=== PATIENT | female | born 1940 | race Caucasian/White ===

== ENCOUNTER 2019-01-19 07:21 | Emergency (ER) | payer MEDICARE ==
[2019-01-19] MEDS ORDERED: Ondansetron PF 4 MG/2 ML Vial ONE (07:49)
[2019-01-19] MEDS ORDERED: Morphine 2 MG/ML SYRINGE ONE (07:49)
[2019-01-19] MEDS ORDERED: Morphine 4 MG/ML VIAL ONE (07:50)
[2019-01-19 08:29] LABS: ALT (SGPT) 35 U/L (8-55); AST (SGOT) 29 U/L (5-34); Albumin 3.9 g/dL (3.4-4.8); Alkaline Phosphatase 57 U/L (40-150); Anion Gap 16 mmol/L (10-20); BUN (Urea Nitrogen) 21 mg/dL (9.8-20.1); Bilirubin, Total 0.3 mg/dL (0.2-1.2); Calc. Creatinine Clearance 0 mL/min (70-130); Calcium 9.4 mg/dL (7.8-10.44); Carbon Dioxide 26 mmol/L (23-31); Chloride 101 mmol/L (98-107); Estimated GFR-MDRD 53; Globulin 2.1 g/dL (2.4-3.5); Glucose 223 mg/dL (83-110); Potassium 4.5 mmol/L (3.5-5.1); Sodium 138 mmol/L (136-145)
[2019-01-19 08:37] LABS: Band 3 % (5-11); Eosinophils 2 % (0-10); Hemoglobin 13.2 g/dL (12.0-16.0); Lymphocytes 52 % (21-51); MDiff Complete? YES; Mean Corpuscular HGB CONC 33.6 g/dL (32.0-36.0); Mean Corpuscular Hemoglobin 32.2 pg (27.0-31.0); Mean Corpuscular Volume 95.9 fL (78.0-98.0); Mean Platelet Volume 7.9 fL (7.4-10.4); Monocytes 2 % (0-10); Neutrophil 40 % (42-75); Platelet Count 181 thou/uL (130-400); Platelet Morphology Comment Appears Adequate; RBC Distribution Width 12.4 % (11.5-14.5); Reactive Lymphocytes 1 % (0-10); Red Blood Cell (RBC) Count 4.09 mill/uL (4.20-5.40); White Blood Cell (WBC) Count 10.1 thou/uL (4.8-10.8)
[2019-01-19 08:56] LABS: Bilirubin Negative (Negative); Blood, Urine Negative (Negative); Clarity Clear (Clear); Glucose, Urine (Dipstick) 300 mg/dL (Negative); Leukocyte Negative Leu/uL (Negative); Nitrite Negative (Negative); Protein, Urine (Dipstick) Negative (Neg-Trace); Urobilinogen Normal mg/dL (Less than 2)
--- NOTE | 2019-01-19 09:09 | CT ---
EXAM: Abdomen and pelvic CT scan with contrast: HISTORY: Back pain left lateral rib cage pain no recent trauma COMPARISON: None FINDINGS: 3 vessel coronary artery calcific disease. Multiple small pulmonary nodules are noted bilaterally the largest which measures approximately 0.7 c m in the left lower lobe. Renal risk factors, recommend follow-up complete chest CT scan in 3-6 months. Liver: Fatty change Gallbladder:Status post cholecystectomy with some dilatation of the common bile duct but no intrahepa tic ductal dilatation. Pancreas:Occasional small pancreatic calcifications. 2.2 x 2.7 cm circumscribed cyst or cystic mass i n the head of the pancreas. Consider follow-up endoscopic ultrasound for further assessment are nonemergent basis. Spleen:Unremarkable. Adrenal glands:Unremarkable. Kidneys:No renal calculus or acute obstruction.No solid or cystic mass. No evidence for bowel obstruction. No CT evidence for acute appendicitis. The urinary bladder is unremarkable. No abscess, adenopathy, or abnormal fluid collection within the abdomen or pelvis. Lumbar spondylosis with extensive disc osteophytosis and multilevel variable severity stenosis. IMPRESSION: Bilateral pulmonary nodules up to 0.7 cm in the left lower lobe. Fatty changes in the liver. Circumscribed low-attenuation cyst/cystic mass in the head of the pancreas. Other findings as above. Code lung nodule
[2019-01-19 09:50] LABS: Troponin I Less than 0.010 ng/mL (< 0.028)
[2019-01-19] MEDS ORDERED: ISOVUE-370 76%-LOCM 1 ML ONE (13:02)
== END 2019-01-19 10:07 | disposition home or self-care (01) ==
LOC: ERS 07:21
DX: R07.81 Pleurodynia (principal); E11.9 Type 2 diabetes mellitus without complications; Z79.82 Long term (current) use of aspirin; Z79.4 Long term (current) use of insulin
CPT/HCPCS: 74177; 80053; 81003; 84484; 85025; 87086; 93005; 96374; 96375; J2270; J2405; Q9966

== ENCOUNTER 2019-02-27 13:16 | Outpatient (CLI) | payer MEDICARE ==
--- NOTE | 2019-02-27 16:03 | RAD ---
TWO VIEWS CHEST: DATE: 02/27/2019. PROVIDED CLINICAL HISTORY: Dyspnea. FINDINGS: Cardiac and mediastinal silhouette are within normal limits. No focal consolidation, pleural fluid, or pneumothorax apparent. IMPRESSION: No evidence for an acute cardiopulmonary process. POS: TPC
== END 2019-02-27 13:17 | disposition home or self-care (01) ==
LOC: RAD 13:16
PROVIDERS: ATTEND Internal Medicine Pulmonary Disease
DX: R06.00 Dyspnea, unspecified (principal)
CPT/HCPCS: 71046

== ENCOUNTER 2019-07-03 15:44 | Observation (INO) | payer MEDICARE ==
[2019-07-03 16:19] LABS: #Basophils 0.2 thou/uL (0.0-0.2); #Lymphocytes 5.6 thou/uL (1.20-3.40); #Monocytes 0.4 thou/uL (0.11-0.59); #Neutrophils 7.8 thou/uL (1.40-6.50); %Basophils 1.5 % (0.0-1.0); %Eosinophils 0.2 % (0.0-10.0); %Lymphocytes 39.8 % (21.0-51.0); %Monocytes 2.9 % (0.0-10.0); %Neutrophils 55.7 % (42.0-75.0); Hemoglobin 14.2 g/dL (12.0-16.0); Mean Corpuscular Hemoglobin 32.5 pg (27.0-31.0); Mean Corpuscular Volume 95.8 fL (78.0-98.0); Mean Platelet Volume 7.3 fL (7.4-10.4); Platelet Count 205 thou/uL (130-400); Red Blood Cell (RBC) Count 4.37 mill/uL (4.20-5.40)
[2019-07-03 16:28] LABS: INR-International Normal Ratio 0.9; PTT 23.3 SEC (22.9-36.1); Prothrombin Time 12.6 SEC (12.0-14.7)
[2019-07-03 16:34] LABS: ALT (SGPT) 21 U/L (8-55); AST (SGOT) 17 U/L (5-34); Albumin 3.9 g/dL (3.4-4.8); Alkaline Phosphatase 54 U/L (40-110); Anion Gap 14 mmol/L (10-20); BUN (Urea Nitrogen) 19 mg/dL (9.8-20.1); Bilirubin, Total 0.5 mg/dL (0.2-1.2); CK (CPK) 147 U/L (29-168); Calc. Creatinine Clearance 0 mL/min (70-130); Calcium 9.3 mg/dL (7.8-10.44); Carbon Dioxide 26 mmol/L (23-31); Chloride 99 mmol/L (98-107); Estimated GFR-MDRD 53; Globulin 2.3 g/dL (2.4-3.5); Glucose 274 mg/dL (83-110); Potassium 4.4 mmol/L (3.5-5.1); Protein, Total 6.2 g/dL (6.0-8.3); Sodium 135 mmol/L (136-145)
--- NOTE | 2019-07-03 16:50 | CT ---
Head CT without contrast 07/03/2019: Comparison: None HISTORY: Left-sided facial droop with altered mental status TECHNIQUE: Axial CT imaging at 5 mm intervals from vertex through skull base without contrast FINDINGS: A right-sided cochlear implant is present. Associated streak artifact limits detailed asses sment of the lateral aspect of the right frontal lobe. The imaged paranasal sinuses and mastoid air cells are well-aerated. The patient is status post mastoidectomy on the right. No intracranial hemorrhage, midline shift, or mass effect. IMPRESSION: No intracranial hemorrhage. Dr. Sotelo made aware at 4:46 PM 07/03/2019
[2019-07-03 17:41] LABS: Bilirubin Negative (Negative); Blood, Urine Negative (Negative); Clarity Clear (Clear); Glucose, Urine (Dipstick) 150 mg/dL (Negative); Leukocyte Negative Leu/uL (Negative); Nitrite Negative (Negative); Protein, Urine (Dipstick) 20 mg/dL (Neg-Trace); Urobilinogen Normal mg/dL (Less than 2)
[2019-07-03] MEDS ORDERED: Nitroglycerin 2% Ointment 1 INCH/1 GM Packet ONE (18:14)
[2019-07-03] MEDS ORDERED: Aspirin Chewable 81 MG TAB ONE ×2 (18:14)
[2019-07-03 19:34] LABS: Troponin I Less than 0.010 ng/mL (< 0.028)
--- NOTE | 2019-07-03 20:28 | PDOC.FPRHP ---
- History of Present Illness Chief Complaint: AMS History of Present Illness: 78yo CF with h/o HLD, HTN, CAD, DMII presents with daughter for AMS. History mainly obtained from daughter at bedside. Pt is a [facility] assisted living resident. Last seen normal on 2 PM. At approx 1500 on 07/03 pt was found to be altered with word finding difficulty. No other focal neural deficits. ADLs at home independently and uses walker for ambulation. Sxs have improved since onset but not completely resolved. ED Course: CT head negative. ASA, nitropaste - Allergies/Adverse Reactions Allergies Allergy/AdvReac Type Severity Reaction Status Date / Time Penicillins Allergy Mild Rash Verified 07/04/19 04:06 - Home Medications Medication Instructions Recorded Confirmed Type Aspirin [Ecotrin Low Strength] 81 mg PO DAILY 07/03/19 07/03/19 History Atorvastatin Calcium [Lipitor] 40 mg PO DAILY 07/03/19 07/03/19 History Citalopram [CeleXA] 20 mg PO DAILY 07/03/19 07/03/19 History Fenofibrate 160 mg PO DAILY 07/03/19 07/03/19 History Furosemide [Lasix] 40 mg PO DAILY 07/03/19 07/03/19 History HumaLOG 60 unit SC TID-WM 07/03/19 07/03/19 History Insulin Glargine,Hum.Rec.Anlog 80 unit SQ HS 07/03/19 07/04/19 History [Toujeo Solostar] Lisinopril 10 mg PO DAILY 07/03/19 07/03/19 History Meloxicam [Mobic] 15 mg PO DAILY 07/03/19 07/03/19 History Oxybutynin Chloride [Oxybutynin 10 mg PO DAILY 07/03/19 07/03/19 History Chloride ER] - History PMHx: HLD, HTN, CAD, DMII PSHx: Apply, evelin, hyst, stens x2 about 8 years ago, cochlear implant, cataracts FHx: noncontributory Social: social wine, 1ppd for many years but quit about 2 years ago, no illicits - Review of Systems General: denies: fever/chills, weight/appetite/sleep changes, night sweats Eyes: denies: vision changes ENT: denies: nasal congestion, rhinorrhea Respiratory: denies: cough, congestion, shortness of breath Cardiovascular: reports: edema. denies: chest pain, palpitation Gastrointestinal: denies: nausea, vomiting, diarrhea, constipation, abdominal pain Genitourinary: denies: incontinence, dysuria Skin: denies: rashes Neurological: reports: other (word finding difficulty) - Vital signs BP: 180/75 HR: 91 RR: 18 Tmax: 99.2 Pox: 97% on RA Wt: 107kg - Physical Exam Constitutional: NAD, awake, alert and oriented, well developed, other (hard of hearing) HEENT: conjunctiva clear, MMM, oropharynx clear Neck: supple, trachea midline Heart: RRR, normal S1/S2, no murmurs/rubs/gallops, other (non pitting edema and venous stasis changes) Lungs: CTAB, no respiratory distress, good air movement, no rales/rhonchi, no wheezing Abdomen: soft, non-tender, bowel sounds present Musculoskeletal: other (5/5 strength throughout) Neurological: no focal deficit, CN II-XII intact, normal sensation, other (no cerebellar deficits. Difficulty with word finding in sentences more than a few words. No slurring of speech) Skin: no rash/lesions Psychiatric: normal mood and affect, good judgment and insight FMR H&P: Results - Labs Result Diagrams: 07/04/19 04:43 07/03/19 16:12 Lab results: WBC 14.0 thou/uL (4.8-10.8) H 07/03/19 16:12 Hgb 14.2 g/dL (12.0-16.0) 07/03/19 16:12 Hct 41.9 % (36.0-47.0) 07/03/19 16:12 MCV 95.8 fL (78.0-98.0) 07/03/19 16:12 Plt Count 205 thou/uL (130-400) 07/03/19 16:12 Neutrophils % 55.7 % (42.0-75.0) 07/03/19 16:12 Sodium 135 mmol/L (136-145) L 07/03/19 16:12 Potassium 4.4 mmol/L (3.5-5.1) 07/03/19 16:12 Chloride 99 mmol/L (98-107) 07/03/19 16:12 Carbon Dioxide 26 mmol/L (23-31) 07/03/19 16:12 BUN 19 mg/dL (9.8-20.1) 07/03/19 16:12 Creatinine 1.01 mg/dL (0.6-1.1) 07/03/19 16:12 Glucose 274 mg/dL (83-110) H 07/03/19 16:12 Calcium 9.3 mg/dL (7.8-10.44) 07/03/19 16:12 Total Bilirubin 0.5 mg/dL (0.2-1.2) 07/03/19 16:12 AST 17 U/L (5-34) 07/03/19 16:12 ALT 21 U/L (8-55) 07/03/19 16:12 Alkaline Phosphatase 54 U/L (40-110) 07/03/19 16:12 Creatine Kinase 147 U/L (29-168) 07/03/19 16:12 Serum Total Protein 6.2 g/dL (6.0-8.3) 07/03/19 16:12 Albumin 3.9 g/dL (3.4-4.8) 07/03/19 16:12 Urine Ketones Negative mg/dL (Negative) 07/03/19 17:23 Urine Blood Negative (Negative) 07/03/19 17:23 Urine Nitrite Negative (Negative) 07/03/19 17:23 Ur Leukocyte Esterase Negative Naomy/uL (Negative) 07/03/19 17:23 - Radiology Interpretation CT scan - head Status: report reviewed by me (no intracranial hemorrhage) FMR H&P: A/P - Problem List (1) Word finding difficulty Current Visit: Yes Status: Acute Code(s): R47.89 - OTHER SPEECH DISTURBANCES (2) HLD (hyperlipidemia) Current Visit: Yes Status: Chronic Code(s): E78.5 - HYPERLIPIDEMIA, UNSPECIFIED (3) HTN (hypertension) Current Visit: Yes Status: Chronic Code(s): I10 - ESSENTIAL (PRIMARY) HYPERTENSION (4) CAD (coronary artery disease) Current Visit: Yes Status: Chronic Code(s): I25.10 - ATHSCL HEART DISEASE OF [place] CORONARY ARTERY W/O ANG PCTRS (5) DMII (diabetes mellitus, type 2) Current Visit: Yes Status: Chronic - Plan 78yo CF with h/o HLD, HTN, CAD, DMII presents with daughter for word finding difficulty. #Word finding difficulty, CVA/MATA r/o - last seen normal 2/12 PM, found with word finding difficulty 07/03 @ about 3pm - no other focal deficits - upon further questioning, daughter stats progressive decline in mentation but acute worsening - CT head neg - Ordered CTA head/neck - Unable to obtain MRI 2/ cochlear inplants - Risk stratify, cont asa and statin - neuro checks - admit to stroke obs - PT/OT/speech - recent TSH normal at 1.9 in May 2019, clinic records #HLD - cont home meds - recent lipid panel in clinic in May 2019 with TC 131, HDL 45, LDL 58 #HTN - permissive htn, restart BP meds after 24-48hrs, removed nitro pasted placed by ED #IDDMII - Cont home insulin, aggressive SS, ACHS accuchecks, hyperglycemic protocol - A1C 9.7 in May 2019 - followed by endo #CAD - cont home meds, stent placement about 8 years ago PCP: KEVIN Zacarias Code: DNR IVF: SL Diet: HH Low Na VTE: Lovenox Disposition/LOS: Admit to stroke obs for CVA/TIA r/o. Imaging pending. Anticipate hospitalization <48hrs pending further workup. FMR H&P: Upper Level - Pertinent history I was present for evaluation and discussion with sports broadcasting internship. Please see sports broadcasting internship H&P for details regarding history. Briefly, patient noted to have word finding difficulty and confusion with last seen normal the evening prior to arrival. Daughter concerned, so she brought patient in for evaluation. - Pertinent findings General: Alert and oriented x3. No acute distress. HEENT: PERRL. MMM Card: RRR, no murmurs Resp: CTA Abdom: No tenderness Neuro: No focal deficits, strength intact, some word finding difficulty noted during exam - Plan Date/Time: 07/03/192027 I, Lori Tinsley, have evaluated this patient and agree with findings/plan as outlined by sports broadcasting internship resident. Pertinent changes/additions are listed here. CVA vs TIA - Word finding difficulty as symptom - Last known normal evening prior to arrival - CT brain neg - CTA head and neck pending - No signs of infection - Cannot obtain MRI due to cochlear implant - Neuro checks - ASA, statin - TSH normal - Risk stratification labs done recently (please see inter note/centricity for further details) Please see sports broadcasting internship note for management on chronic diseases DVT ppx: Lovenox Code status: Full Dispo: Obs on stroke. Anticipate LOS <48 hours.
[2019-07-03] MEDS ORDERED: Ondansetron PF 4 MG/2 ML Vial IVP PRN ×2 (20:50→20:56)
[2019-07-03] MEDS ORDERED: Ondansetron ODT 4 MG TAB SL PRN (20:50)
[2019-07-03] MEDS ORDERED: Acetaminophen 325 MG TAB PO PRN ×2 (20:50→20:56)
[2019-07-03] MEDS ORDERED: Ondansetron ODT 4 MG TAB PO PRN (20:56)
[2019-07-03] MEDS ORDERED: Calcium Carbonate 500 MG ChewTAB PO PRN (20:56)
[2019-07-03] MEDS ORDERED: Dextrose 50% Abboject 50 ML SYRINGE SLOW IVP PRN (20:56)
[2019-07-03] MEDS ORDERED: HumaLOG 300 UNITS/3 ML VIAL SC PRN (20:56)
[2019-07-03] MEDS ORDERED: hydrALAZINE 20 MG/ML VIAL SLOW IVP PRN (20:56)
[2019-07-03] MEDS ORDERED: Dextrose 5% in Water 1,000 ML IV PRN (20:56)
[2019-07-03] MEDS ORDERED: Insulin Glargine 80 UNITS in Pre-Filled Syringe 1 EACH SC SCH (21:00)
[2019-07-03] MEDS ORDERED: Enoxaparin Sodium 40 MG/0.4 ML SYRINGE SC SCH (21:30)
[2019-07-04 01:55] VITALS: BMI 41.6
[2019-07-04 06:22] LABS: Band 1 % (5-11); Eosinophils 2 % (0-10); Hemoglobin 13.5 g/dL (12.0-16.0); Lymphocytes 48 % (21-51); MDiff Complete? YES; Mean Corpuscular HGB CONC 33.6 g/dL (32.0-36.0); Mean Corpuscular Hemoglobin 32.2 pg (27.0-31.0); Mean Corpuscular Volume 95.9 fL (78.0-98.0); Mean Platelet Volume 7.3 fL (7.4-10.4); Monocytes 8 % (0-10); Neutrophil 41 % (42-75); Platelet Count 203 thou/uL (130-400); RBC Distribution Width 12.1 % (11.5-14.5); White Blood Cell (WBC) Count 12.6 thou/uL (4.8-10.8)
[2019-07-04] MEDS: HumaLOG 300 UNITS/3 ML VIAL SC PRN (07:01)
--- NOTE | 2019-07-04 08:54 | ULT ---
EXAM: Left lower extremity venous Doppler US HISTORY: left lower extremity edema, erythema and pain FINDINGS: Grayscale, color-flow, Doppler evaluation, spectral analysis of the left lower extremity venous struc tures is performed with 2-D imaging. The left common femoral, superficial femoral, popliteal, posterior tibial, proximal greater saphenous and profunda femoral veins are imaged. There is normal luminal compressibility, flow, and augmentation the visualized deep venous structures of the left lower extremity. IMPRESSION: No evidence of a deep vein thrombosis in the left lower extremity.
[2019-07-04] MEDS ORDERED: FLU VACC TS2019-20(65YR UP)/PF 180 MCG/0.5 ML SYRINGE IM ONE (09:00)
--- NOTE | 2019-07-04 09:30 | PDOC.FM ---
- Subjective Subjective: pt at CT scanner on rounds, no events reported overnight - Objective Vital Signs & Weight: Vital Signs (12 hours) Temp Pulse Resp BP Pulse Ox 07/04/19 08:11 97.7 F 85 17 137/58 L 92 L 07/04/19 04:00 98.3 F 75 18 142/54 H 95 07/04/19 00:00 98.1 F 88 18 131/61 91 L Weight Weight 106.594 kg I&O: 07/03/19 07/04/19 07/05/19 06:59 06:59 06:59 Intake Total 480 Balance 480 Result Diagrams: 07/04/19 04:43 07/03/19 16:12 Dx/Plan (1) Word finding difficulty Code(s): R47.89 - OTHER SPEECH DISTURBANCES Status: Acute (2) CAD (coronary artery disease) Code(s): I25.10 - ATHSCL HEART DISEASE OF [place] CORONARY ARTERY W/O ANG PCTRS Status: Chronic (3) DMII (diabetes mellitus, type 2) Status: Chronic (4) HLD (hyperlipidemia) Code(s): E78.5 - HYPERLIPIDEMIA, UNSPECIFIED Status: Chronic (5) HTN (hypertension) Code(s): I10 - ESSENTIAL (PRIMARY) HYPERTENSION Status: Chronic - Plan Plan: CVA/MATA r/o - CTA head/neck pending, LE vascular US neg, Unable to obtain MRI 2/2 cochlear inplants - Risk stratified, cont asa and statin HLD - cont home meds HTN - permissive htn, restart BP meds after 24-48hrs IDDMII - Cont home insulin, aggressive SS, ACHS accuchecks, hyperglycemic protocol CAD - cont home meds, stent placement about 8 years ago PCP: KEVIN Zacarias Code: DNR Dispo: cont eval/treat Addendum - Attending - Attending Attestation Date/Time: 07/04/19 [id number] I personally evaluated the patient and discussed the management with Dr. Escalona I agree with the History, Examination, Assessment and Plan documented above with any addition or exceptions noted below. Patient back at baseline not able to proceed with MRI due to cochlear implant will rec completing w/u with echocardiogram continued monitoring and Statin ASA continued permissive HTN probably could d/c tommorrow if she continues stable with negative continued work up.
[2019-07-04] MEDS: Enoxaparin Sodium 40 MG/0.4 ML SYRINGE SC SCH (09:49)
[2019-07-04] MEDS: Citalopram 20 MG TAB PO SCH (09:49)
[2019-07-04] MEDS: Aspirin 81 mg Enteric Coated Tablet PO SCH (09:49)
[2019-07-04] MEDS: Atorvastatin Calcium 40 MG TAB PO SCH (09:49)
[2019-07-04] MEDS: Furosemide 40 MG TAB PO SCH (09:49)
[2019-07-04] MEDS: Fenofibrate Nanocrystallized 145 MG TAB PO SCH (09:49)
[2019-07-04] MEDS: HumaLOG 300 UNITS/3 ML VIAL SC SCH ×3 (10:02→17:29)
--- NOTE | 2019-07-04 10:22 | CT ---
CT ANGIOGRAM HEAD CT ANGIOGRAM NECK: DATE: 07/04/2019 HISTORY: Word finding difficulty TECHNIQUE: Axial CT imaging at 5 mm intervals from vertex through skull base without contrast. In add ition, axial CT imaging at 1.25 mm intervals from vertex through lung apices with IV contrast using CT angiogram protocol. Coronal and sagittal 3-D reformatted imaging obtained. FINDINGS: The noncontrast enhanced CT imaging of the head demonstrates a right-sided cochlear implant . The imaged paranasal sinuses and mastoid air cells appear otherwise grossly unremarkable. No displaced calvarial fracture. No intracranial hemorrhage, midline shift, or mass effect. The imaged lung apices demonstrate multiple nonspecific small pulmonary nodules. There is a partially imaged nodule in the superior segment of the left lower lobe on image 1 measuring 5 mm. There is also a left upper lobe nodule on image 1 measuring 5 mm. Anterior left upper lobe 5 mm nodule noted o n image 30 and right upper lobe pulmonary nodule noted on image 17 measuring 4 mm. Multiple hypodense nodules are noted within the thyroid gland which measure up to 1.7 cm on the left. Follow-up thyroid ultrasound suggested. Mildly prominent but nonenlarged lymph node noted in the AP window. Secondary to timing of the contrast bolus the opacification of the arterial structures of the neck is suboptimal. There is mild atherosclerotic calcification at the origin of the innominate artery and the left common carotid artery. There is mild atherosclerotic calcification at the origin of the righ t subclavian artery. There is mild stenosis at the origin of the right common carotid artery. There is mild atherosclerotic calcification at the origin of the left subclavian artery and left vertebral artery. Left vertebral artery appears patent. The right vertebral artery appears occluded at its origin with distal reconstitution of a hypoplastic right vertebral artery noted at the axial level of the C3-4 interspace. The right vertebral artery distal to this is markedly hypoplastic, particularly at the axial level of the skull base. The common carotid artery is markedly medialized bilaterally, especially distally demonstrating a ret ropharyngeal course. There is significant atherosclerotic calcification involving the distal CCA and proximal ICA bilaterally. The degree of atherosclerotic calcification, the medialized location of the carotid arterial vasculature, and the timing of the contrast bolus limits detailed assessment for associated hemodynamically significant stenosis. The baby on the basis of NASCET criteria there i s no hemodynamically significant stenosis suspected in the region of the left internal or common carotid artery. Probable mild stenosis, less than 50%, noted involving the distal right CCA and proxi mal right ICA. There is scattered multifocal mild/moderate basilar artery stenosis. The P1 segment appears markedly hypoplastic if not aplastic bilaterally. Posterior communicating arteries are present bilaterally. Bilateral posterior cerebral arteries appear intact. No vascular occlusion or saccular aneurysm is se en involving the posterior circulation. There is atherosclerotic calcification involving the cavernous carotid arteries bilaterally. The A1 segment is patent, hypoplastic on the right. Distal BRITTNEY branches appear grossly unremarkable. The M1 segment and the ICA bifurcation appears unremarkable bilaterally. The MCA via from patient appears grossly unremarkable and distal MCA branches are grossly unremarkable, partially obscured on the right secondary to streak artifact associated with the patient's cochlear implant. There is no lymphadenopathy is apparent within the posterior triangle on either side. There are nonsp ecific mildly prominent level 1 lymph nodes bilaterally measuring 1.1 cm in short axis dimension bilaterally. The level of the tonsillar pillars, epiglottis and preepiglottic fat, hyoid bone, thyroid cartilage, cricoid cartilage, and glottis appear grossly unremarkable. No worrisome lytic or blastic bone lesion. There is prominent multilevel cervical spine degenerative change with prominent bilateral mu ltilevel facet and uncovertebral osteophyte formation. IMPRESSION: Limited assessment of the arterial structures of the neck as detailed above. Atherosclero tic disease as detailed above. No vascular occlusion intracranially. 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 Pulmonary nodules, for which dedicated chest CT advised. Abnormal appearance of the thyroid gland. Recommend follow-up thyroid ultrasound. CODE T Transcribed Date/Time: 07/04/2019 10:39 AM
[2019-07-04] MEDS ORDERED: Iopamidol 370 76% 100 ML VIAL ONE (16:39)
[2019-07-04] MEDS ORDERED: Insulin Glargine 100 UNITS in Pre-Filled Syringe 1 EACH SC SCH (21:00)
[2019-07-04] MEDS ORDERED: INSULIN GLARGINE HUM REC ANLOG 100 UNIT SQ SCH (21:00)
[2019-07-04] MEDS ORDERED: Insulin Glargine 80 UNITS in Pre-Filled Syringe 1 EACH SC SCH (22:00)
[2019-07-05] MEDS: HumaLOG 300 UNITS/3 ML VIAL SC PRN (06:26)
--- NOTE | 2019-07-05 06:47 | PDOC.FM ---
- Subjective Subjective: pt sleeping upright in chair, cochlear implants not working, no new deficits - Objective Vital Signs & Weight: Vital Signs (12 hours) Temp Pulse Resp BP Pulse Ox 07/05/19 04:26 98.4 F 81 20 141/63 H 93 L 07/05/19 01:41 98.6 F 85 20 146/60 H 95 07/04/19 19:37 98.4 F 86 20 133/58 L 91 L Weight Weight 106.594 kg I&O: 07/03/19 07/04/19 07/05/19 06:59 06:59 06:59 Intake Total 480 1250 Balance 480 1250 Result Diagrams: 07/04/19 04:43 07/03/19 16:12 Phys Exam - Physical Examination Constitutional: NAD HEENT: moist MMs Neck: no JVD Gastrointestinal: no distention Musculoskeletal: no edema, pulses present Neurological: non-focal, normal sensation, moves all 4 limbs Psychiatric: normal affect Skin: no rash Dx/Plan (1) Word finding difficulty Code(s): R47.89 - OTHER SPEECH DISTURBANCES Status: Acute (2) CAD (coronary artery disease) Code(s): I25.10 - ATHSCL HEART DISEASE OF [place] CORONARY ARTERY W/O ANG PCTRS Status: Chronic (3) DMII (diabetes mellitus, type 2) Status: Chronic (4) HLD (hyperlipidemia) Code(s): E78.5 - HYPERLIPIDEMIA, UNSPECIFIED Status: Chronic (5) HTN (hypertension) Code(s): I10 - ESSENTIAL (PRIMARY) HYPERTENSION Status: Chronic - Plan Plan: CVA/MATA r/o - CTA head/neck w/o intracranial abnormalities, LE vascular US neg, Unable to obtain MRI 2/2 cochlear inplants - echo wnl - Risk stratified, cont asa and statin CTA abnormalities - recommend CT chest and thyroid US outpt HLD - cont home meds HTN - continue home meds IDDMII - Cont home insulin, aggressive SS, ACHS accuchecks, hyperglycemic protocol CAD - cont home meds, stent placement about 8 years ago PCP: KEVIN Zacarias Code: DNR Dispo: DC today
[2019-07-05 07:52] VITALS: BP 144/55; TEMP 99.5
[2019-07-05] MEDS: Aspirin 81 mg Enteric Coated Tablet PO SCH (08:45)
[2019-07-05] MEDS: Fenofibrate Nanocrystallized 145 MG TAB PO SCH (08:46)
[2019-07-05] MEDS: Enoxaparin Sodium 40 MG/0.4 ML SYRINGE SC SCH (08:46)
[2019-07-05] MEDS: Furosemide 40 MG TAB PO SCH (08:46)
[2019-07-05] MEDS: Citalopram 20 MG TAB PO SCH (08:46)
[2019-07-05] MEDS: Atorvastatin Calcium 40 MG TAB PO SCH (08:46)
[2019-07-05] MEDS: HumaLOG 300 UNITS/3 ML VIAL SC SCH (08:47)
[2019-07-05] MEDS ORDERED: Oxybutynin 5 MG TAB PO SCH (09:00)
[2019-07-05] MEDS ORDERED: Non-Formulary Item 1 EACH (Oxybutynin Chloride [Oxybutynin Chloride Er] 10 MG) PO SCH (09:00)
[2019-07-05] MEDS ORDERED: Meloxicam 15 MG TAB PO SCH (09:00)
[2019-07-05] MEDS ORDERED: Lisinopril 10 MG TAB PO SCH (09:00)
[2019-07-05] MEDS ORDERED: Clopidogrel Bisulfate 75 MG TAB PO SCH (09:00)
--- NOTE | 2019-07-05 16:03 | PRG ---
DATE OF SERVICE: 07/05/2019 Please see note from Dr. Lorenzo Escalona, for which I agree. The patient was seen, evaluated, discussed, and examined with the residents by bedside. Basically, no more neurologic deficits. It seems like she probably had just a mild TIA and the workup has been completely negative. It did show a thyroid nodule and some pulmonary nodules with sounds like both of those are actually known to the patient, and so she should be able to go home. She failed aspirin therapy, so we will either switch to Aggrenox or add Plavix and will obviously be more aggressive if she continues to have any other neurologic deficits in the future. Continue other home medicines. Job ID: [id number]
[2019-07-05] MEDS ORDERED: Insulin Glargine 80 UNITS in Pre-Filled Syringe 1 EACH SC SCH (21:00)
--- NOTE | 2019-07-07 11:50 | DIS ---
DATE OF ADMISSION: 07/03/2019 DATE OF DISCHARGE: 07/05/2019 ADMITTING ATTENDING: Lj Flowers MD DISCHARGE ATTENDING: Landon Ruiz MD CONSULTS: None. IMAGING: CT brain was positive for chronic changes, but no acute abnormalities. CTA and CT [place] were also within normal limits. Vascular ultrasound was negative. Echocardiogram revealed no abnormalities related to ischemic events. DISCHARGE MEDICATIONS: 1. Lisinopril 10 mg p.o. daily. 2. Lasix 40 mg p.o. daily. 3. Oxybutynin 10 mg p.o. daily. 4. Meloxicam 15 mg p.o. daily. 5. Humalog 60 units subcutaneous t.i.d. with meals. 6. Fenofibrate 160 mg p.o. daily. 7. Citalopram 20 mg p.o. daily. 8. Lipitor 40 mg p.o. daily. 9. Aspirin 81 mg p.o. daily. 10. Toujeo 80 units subcutaneous at bedtime. 11. Plavix 75 mg p.o. daily. DISCHARGE DIAGNOSIS: Transient ischemic attack. SECONDARY DIAGNOSES: 1. CTA abnormalities including pulmonary nodules and thyroid abnormalities. 2. Hyperlipidemia. 3. Hypertension. 4. Insulin-dependent diabetes mellitus type 2. 5. Coronary artery disease. HISTORY OF PRESENT ILLNESS/HOSPITAL COURSE: Ms. Odalys Hoyos is an 78-year-old female with past medical history significant for hyperlipidemia, hypertension, coronary artery disease, and diabetes mellitus, who presents with her daughter to the emergency department for word finding difficulty approximately 8 hours prior to arrival. At evaluation in the emergency department, the patient was noted to have no focal neurologic deficits as they had resolved. At that time, CT head was negative. The patient unable to obtain MRI secondary to cochlear implants. Lower extremity vascular ultrasound, echocardiogram and CTAs were all within normal limits and did not reveal any ischemic events. The patient remained stable, had no new focal neurologic deficits. Believed to have a TIA since she was started on dual antiplatelet therapy and sent for followup with PCP in the next 3 to 7 days. DISCHARGE INSTRUCTIONS: 1. Location: Home. 2. Diet: Heart healthy, low-sodium, diabetic. 3. Activity: As tolerated. 4. Followup: With PCP, Dr. Valente Zacarias in the next 3 to 7 days. Job ID: [id number]
== END 2019-07-05 12:13 | disposition home or self-care (01) ==
LOC: ERS 15:44 → 2SE 17:39
PROVIDERS: ADMIT Family Medicine; ATTEND Family Medicine
DX: R47.89 Other speech disturbances (principal); R41.82 Altered mental status, unspecified; R29.810 Facial weakness; I10 Essential (primary) hypertension; I25.10 Atherosclerotic heart disease of native coronary artery without angina pectoris; E11.9 Type 2 diabetes mellitus without complications; E78.5 Hyperlipidemia, unspecified; E04.1 Nontoxic single thyroid nodule; Z79.1 Long term (current) use of non-steroidal anti-inflammatories (NSAID); Z79.4 Long term (current) use of insulin; Z79.82 Long term (current) use of aspirin; Z79.899 Other long term (current) drug therapy; Z87.891 Personal history of nicotine dependence; Z88.0 Allergy status to penicillin; Z95.1 Presence of aortocoronary bypass graft; Z96.21 Cochlear implant status; Z66 Do not resuscitate
CPT/HCPCS: 70450; 70496; 70498; 80053; 81003; 82550; 82607; 82962 ×3; 84484 ×2; 85007; 85025; 85027; 85610; 85730; 93005; 93306; 93971; 94760; 96372 ×2; 97110; 97116; 97139 ×3; 97530; 97535; 99285; G0378 ×3; 36415; 36416; J1650; J1815; Q9967

== ENCOUNTER 2019-10-03 12:07 | Outpatient (CLI) | payer MEDICARE ==
[~2019-10-03 12:07] MED LIST: Iopamidol-370 76% 500 ML 1 ML ONE
--- NOTE | 2019-10-03 15:05 | CT ---
CT OF THE THORAX WITH IV CONTRAST: INDICATION: History of pulmonary nodules. COMPARISON: CTA of the head and neck dated 07/04/[address] of the abdomen and pelvis with contrast dated 019. FINDINGS: Numerous scattered pulmonary nodules seen throughout both lungs. One of the largest is seen within t he anterolateral left lower lobe on image 62 of series 3 measuring 6.8 mm where on the previous CT of the abdomen and pelvis from 01/19/2019 this lesion measured at 6 mm. The largest lesion within the ri ght lung is seen on image 48 of series 3 within the right lower lobe measuring 6 mm. This lesion is not well delineated compared to the prior examinations. No pleural effusion is evident. There is a nonspecific enlarged prevascular lymph node measuring 1.3 cm. There is a mildly prominent left axillary lymph node measuring 1 cm. There is a partially visualized soft tissue nodule involvi ng the left breast on image 50 of series 2 measuring 9 mm. There are coronary artery thoracic aorta calcifications. There is a right adrenal nodule measuring 3 x 1.9 cm that is incompletely characterized on the curren t examination and is mildly enlarged from the comparison CT of the abdomen and pelvis from 01/20/2019. There is hepatomegaly with fatty infiltration of the liver. The spleen is upper limits of normal fo r size measuring 12.5 cm. There is scattered degenerative and osteoarthritic change. IMPRESSION: 1. Numerous scattered pulmonary nodules throughout both lungs, the largest seen within the left lowe r lobe now measuring 6.8 mm, slightly enlarged from a comparison CT of the abdomen and pelvis from 01/19/2019. Metastatic disease is not excluded. These pulmonary lesions are below PET resolution thresh old. Short-term CT followup in 6-8 weeks is recommended. 2. Cystic mass was identified involving the pancreatic head on a comparison CT of the abdomen and pe lvis 01/19/2019. A followup CT of the abdomen utilizing a pancreatic mass protocol is recommended for additional characterization. Adding an additional 10-minute delayed-phase image series to this exami nation is recommended as there is a right adrenal lesion that requires further characterization. Thi s could undergo further characterization on that CT abdomen examination. 3. Nonspecific enlarged prevascular and left axillary lymph node. 4. Nodular density partially imaged involving the left breast. Recommend correlation with prior scr eening mammograms available. A diagnostic mammogram may be helpful for further characterization. 5. Coronary artery thoracic aorta calcifications. 6. Fatty liver with hepatomegaly. CODE T POS: BH
== END 2019-10-03 12:08 | disposition home or self-care (01) ==
LOC: BICCT 12:07
PROVIDERS: ATTEND Internal Medicine Pulmonary Disease
DX: R91.1 Solitary pulmonary nodule (principal); R91.8 Other nonspecific abnormal finding of lung field; I25.10 Atherosclerotic heart disease of native coronary artery without angina pectoris; K86.2 Cyst of pancreas; K76.0 Fatty (change of) liver, not elsewhere classified; R16.0 Hepatomegaly, not elsewhere classified; N63.20 Unspecified lump in the left breast, unspecified quadrant; R59.0 Localized enlarged lymph nodes; I70.0 Atherosclerosis of aorta; E27.8 Other specified disorders of adrenal gland
CPT/HCPCS: 71260; 82565; Q9967

== ENCOUNTER 2019-10-28 13:21 | Outpatient (CLI) | payer MEDICARE ==
[~2019-10-28 13:21] MED LIST changes: +Iopamidol 370 76% 100 ML VIAL ONE; -Iopamidol-370 76% 500 ML 1 ML ONE
--- NOTE | 2019-10-28 15:27 | CT ---
CT abdomen with and without contrast: 10/28/2019 HISTORY: 78-year-old female with pancreatic mass and right adrenal mass. COMPARISON: CT abdomen and pelvis of 01/19/2019 TECHNIQUE: Oral contrast administered. IV contrast administered. Precontrast, arterial phase, venous phase, and 10 minute delayed, scans from lung bases to iliac butch ts. COMPARISON: 01/19/2019 FINDINGS: Again noted is the well-circumscribed cystic lesion with thin, imperceptible ardon, at the inferior a spect of the head of pancreas. It does not appear to enhance: The precontrast, arterial phase, venous phase, and delayed phase densities all range from approximately 12 to16 Hounsfield units.. Cur rent measurements are approximately 3 x 3 x 2.5 cm. It was previously approximately 2.5 x 2.2 x 2.2 cm. There is no significant biliary ductal dilation. Fatty liver. No solid or cystic hepatic lesion. No splenomegaly. No pancreatic ductal dilation. No ac jered findings involving visualized upper portions of colon and small intestine. No free fluid. Atherosclerosis without aneurysm of abdominal aorta. No hydronephrosis. No solid or cystic renal mass . 2.5 x 1.6 cm right adrenal nodule is unchanged. Unfortunately, on the precontrast scan, there is tommy thing motion artifact, making it difficult to obtain accurate density measurement on that scan. The 10 minute delayed scan density is approximately 15 Hounsfield units. No left adrenal nodule. No major interval change overall. IMPRESSION: 1. Minimal interval growth of cystic lesion at pancreatic head. This could represent a low-grade cyst ic pancreatic neoplasm. Continued serial follow-up CT of abdomen is recommended, beginning in 6 months to one year. 2. Indeterminate right adrenal nodule is unchanged. 3. Hepatic steatosis.
== END 2019-10-28 13:22 | disposition home or self-care (01) ==
LOC: BICCT 13:21
PROVIDERS: ATTEND Internal Medicine
DX: K86.2 Cyst of pancreas (principal); K76.0 Fatty (change of) liver, not elsewhere classified
CPT/HCPCS: 74170; Q9967

== ENCOUNTER 2020-08-09 07:43 | Outpatient (CLI) | payer MEDICARE ==
[2020-08-09] MEDS ORDERED: Iopamidol-370 76% 500 ML 1 ML ONE (14:04)
== END 2020-08-09 07:44 | disposition home or self-care (01) ==
LOC: BICCT 07:43
PROVIDERS: ATTEND Internal Medicine
DX: K86.2 Cyst of pancreas (principal); D35.01 Benign neoplasm of right adrenal gland; R91.8 Other nonspecific abnormal finding of lung field
CPT/HCPCS: 74177; 82565; Q9967

== ENCOUNTER 2021-08-23 16:57 | Inpatient (IN) | payer MEDICARE ==
[2021-08-23 17:46] LABS: #Basophils 0.1 thou/uL (0.0-0.2); #Eosinphils 0.3 thou/uL (0.0-0.7); #Lymphocytes 2.7 thou/uL (1.20-3.40); #Monocytes 0.6 thou/uL (0.11-0.59); #Neutrophils 6.9 thou/uL (1.40-6.50); %Basophils 1.1 % (0.0-1.0); %Eosinophils 2.5 % (0.0-10.0); %Lymphocytes 25.3 % (21.0-51.0); %Monocytes 5.9 % (0.0-10.0); %Neutrophils 65.2 % (42.0-75.0); Hemoglobin 14.3 g/dL (12.0-16.0); Mean Corpuscular HGB CONC 31.1 g/dL (32.0-36.0); Mean Corpuscular Hemoglobin 30.2 pg (27.0-31.0); Mean Corpuscular Volume 97.2 fL (78.0-98.0); Mean Platelet Volume 6.7 fL (7.4-10.4); Platelet Count 260 thou/uL (130-400); Red Blood Cell (RBC) Count 4.75 mill/uL (4.20-5.40); White Blood Cell (WBC) Count 10.6 thou/uL (4.8-10.8)
[2021-08-23 18:17] LABS: ALT (SGPT) 19 U/L (8-55); AST (SGOT) 25 U/L (5-34); Albumin 3.6 g/dL (3.4-4.8); Alkaline Phosphatase 47 U/L (40-110); Anion Gap 12 mmol/L (10-20); BUN (Urea Nitrogen) 34 mg/dL (9.8-20.1); Bilirubin, Total 0.6 mg/dL (0.2-1.2); Calc. Creatinine Clearance 0 mL/min (70-130); Calcium 8.8 mg/dL (7.8-10.44); Carbon Dioxide 32 mmol/L (23-31); Chloride 102 mmol/L (98-107); Globulin 2.3 g/dL (2.4-3.5); Potassium 3.8 mmol/L (3.5-5.1); Protein, Total 5.9 g/dL (5.8-8.1); Sodium 142 mmol/L (136-145)
[2021-08-23 18:22] LABS: Glucose 44 mg/dL (83-110)
[2021-08-23] MEDS ORDERED: Ondansetron PF 4 MG/2 ML Vial ONE ×2 (18:34→20:00)
[2021-08-23] MEDS ORDERED: Morphine 4 MG/ML VIAL ONE ×2 (18:34→20:00)
[2021-08-23] MEDS ORDERED: Ondansetron PF 4 MG/2 ML Vial IVP PRN (21:06)
[2021-08-23] MEDS ORDERED: Ondansetron ODT 4 MG TAB PO PRN (21:06)
[2021-08-23] MEDS ORDERED: Dextrose 50% Abboject 50 ML SYRINGE SLOW IVP PRN (21:06)
[2021-08-23] MEDS ORDERED: Dextrose 5% in Water 1,000 ML IV PRN (21:06)
[2021-08-23] MEDS ORDERED: Cyclobenzaprine 10 MG TAB PO PRN (21:13)
[2021-08-23] MEDS ORDERED: traMADol HCl 50 MG TAB PO PRN (21:13)
[2021-08-23] MEDS ORDERED: Sodium Chloride 0.9% 1,000 ML IV SCH (21:15)
[2021-08-23 21:38] LABS: Magnesium 2.1 mg/dL (1.6-2.6); Phosphorus 3.8 mg/dL (2.3-4.7)
[2021-08-23] MEDS ORDERED: hydrALAZINE 20 MG/ML VIAL SLOW IVP PRN (21:47)
[2021-08-23] MEDS ORDERED: Potassium Phosphate 15 MMOL in Sodium Chloride 0.9% 250 ML 250 ML IVPB SCH (22:30)
[2021-08-23] MEDS: Gabapentin 100 MG CAP PO SCH (23:38)
[2021-08-23] MEDS: traMADol HCl 50 MG TAB PO SCH (23:39)
[2021-08-23] MEDS: Acetaminophen 325 MG TAB PO SCH (23:40)
[2021-08-24 05:21] LABS: #Basophils 0.1 thou/uL (0.0-0.2); #Eosinphils 0.2 thou/uL (0.0-0.7); #Lymphocytes 3.5 thou/uL (1.20-3.40); #Monocytes 1.1 thou/uL (0.11-0.59); #Neutrophils 11.1 thou/uL (1.40-6.50); %Basophils 0.6 % (0.0-1.0); %Eosinophils 1.2 % (0.0-10.0); %Lymphocytes 21.9 % (21.0-51.0); %Monocytes 6.9 % (0.0-10.0); %Neutrophils 69.4 % (42.0-75.0); Hemoglobin 14.3 g/dL (12.0-16.0); Mean Corpuscular HGB CONC 31.9 g/dL (32.0-36.0); Mean Corpuscular Hemoglobin 31.8 pg (27.0-31.0); Mean Corpuscular Volume 99.7 fL (78.0-98.0); Mean Platelet Volume 6.7 fL (7.4-10.4); Platelet Count 253 thou/uL (130-400); RBC Distribution Width 14.1 % (11.5-14.5); Red Blood Cell (RBC) Count 4.49 mill/uL (4.20-5.40)
[2021-08-24] MEDS: Gabapentin 100 MG CAP PO SCH (05:30)
[2021-08-24] MEDS: Acetaminophen 325 MG TAB PO SCH ×4 (05:30→20:47)
[2021-08-24] MEDS: traMADol HCl 50 MG TAB PO SCH ×2 (05:30→11:08)
[2021-08-24 05:59] LABS: Anion Gap 12 mmol/L (10-20); BUN (Urea Nitrogen) 31 mg/dL (9.8-20.1); Calc. Creatinine Clearance 69 mL/min (70-130); Calcium 8.3 mg/dL (7.8-10.44); Carbon Dioxide 31 mmol/L (23-31); Chloride 103 mmol/L (98-107); Glucose 112 mg/dL (83-110); Magnesium 2.1 mg/dL (1.6-2.6); Phosphorus 6.2 mg/dL (2.3-4.7); Potassium 5.6 mmol/L (3.5-5.1); Sodium 140 mmol/L (136-145)
[2021-08-24 09:23] LABS: Hemoglobin A1c 6.3 % (4.0-6.0)
[2021-08-24] MEDS ORDERED: traMADol HCl 50 MG TAB PO PRN (10:45)
[2021-08-24] MEDS: Famotidine 20 MG TAB PO SCH (10:53)
[2021-08-24] MEDS: Senokot S 8.6-50 MG TAB PO SCH ×2 (11:05→20:47)
[2021-08-24] MEDS: Polyethylene Glycol 3350 17 GM Packet PO SCH (11:07)
[2021-08-24 12:24] LABS: Anion Gap 13 mmol/L (10-20); BUN (Urea Nitrogen) 32 mg/dL (9.8-20.1); Calc. Creatinine Clearance 66 mL/min (70-130); Calcium 8.1 mg/dL (7.8-10.44); Carbon Dioxide 30 mmol/L (23-31); Chloride 103 mmol/L (98-107); Glucose 190 mg/dL (83-110); Phosphorus 5.7 mg/dL (2.3-4.7); Potassium 5.1 mmol/L (3.5-5.1); Sodium 141 mmol/L (136-145)
[2021-08-24 15:02] LABS: Bacteria/HPF 3+ HPF (None Seen); Bilirubin Negative (Negative); Blood, Urine Negative (Negative); Clarity Clear (Clear); Glucose, Urine (Dipstick) Greater than 1000 mg/dL (Negative); Ketone, Urine Negative (Negative); Leukocyte Negative Leu/uL (Negative); Nitrite Negative (Negative); Protein, Urine (Dipstick) Negative (Neg-Trace); RBC/HPF 0-3 HPF (0-3); Specific Gravity, Urine 1.018 (1.002-1.036); Squamous Epithelial None Seen HPF (0-3); Urobilinogen Normal mg/dL (Less than 2); WBC/HPF 0-3 HPF (0-3)
[2021-08-24 15:04] LABS: Urine Culture Reflex Yes Yes
[2021-08-24] MEDS ORDERED: Ciprofloxacin 500 MG TAB PO SCH ×2 (15:30→20:00)
[2021-08-24] MEDS: Sodium Chloride 0.9% 1,000 ML IV SCH (15:41)
[2021-08-24] MEDS: Insulin Regular 300 UNITS/3 ML VIAL SC PRN ×2 (18:32→20:54)
[2021-08-24] MEDS: Mometasone 200 MCG/Formoterol 5 MCG 120 PUFF INHALER INH SCH (19:08)
[2021-08-24] MEDS: Amoxicillin/Potassium Clav 875 MG TAB PO SCH (20:47)
[2021-08-25] MEDS: Sodium Chloride 0.9% 1,000 ML IV SCH ×4 (00:20→20:10)
[2021-08-25] MEDS: Acetaminophen 325 MG TAB PO SCH ×5 (03:29→20:08)
[2021-08-25 05:16] LABS: #Basophils 0.1 thou/uL (0.0-0.2); #Eosinphils 0.2 thou/uL (0.0-0.7); #Lymphocytes 2.9 thou/uL (1.20-3.40); #Neutrophils 10.8 thou/uL (1.40-6.50); %Basophils 0.5 % (0.0-1.0); %Eosinophils 1.1 % (0.0-10.0); %Lymphocytes 19.7 % (21.0-51.0); %Monocytes 6.6 % (0.0-10.0); %Neutrophils 72.1 % (42.0-75.0); Hemoglobin 13.3 g/dL (12.0-16.0); Mean Corpuscular HGB CONC 30.6 g/dL (32.0-36.0); Mean Corpuscular Hemoglobin 30.5 pg (27.0-31.0); Mean Platelet Volume 6.7 fL (7.4-10.4); Platelet Count 233 thou/uL (130-400); RBC Distribution Width 14.1 % (11.5-14.5); Red Blood Cell (RBC) Count 4.34 mill/uL (4.20-5.40); White Blood Cell (WBC) Count 14.9 thou/uL (4.8-10.8)
[2021-08-25 05:36] LABS: Anion Gap 14 mmol/L (10-20); BUN (Urea Nitrogen) 38 mg/dL (9.8-20.1); Calc. Creatinine Clearance 61 mL/min (70-130); Calcium 8.3 mg/dL (7.8-10.44); Carbon Dioxide 27 mmol/L (23-31); Chloride 104 mmol/L (98-107); Glucose 196 mg/dL (83-110); Magnesium 2.1 mg/dL (1.6-2.6); Phosphorus 5.1 mg/dL (2.3-4.7); Potassium 5.2 mmol/L (3.5-5.1); Sodium 140 mmol/L (136-145)
[2021-08-25] MEDS ORDERED: Ciprofloxacin 500 MG TAB PO SCH (06:00)
[2021-08-25] MEDS: Insulin Regular 300 UNITS/3 ML VIAL SC PRN ×3 (06:04→15:30)
[2021-08-25] MEDS: Amoxicillin/Potassium Clav 875 MG TAB PO SCH ×2 (08:29→20:09)
[2021-08-25] MEDS: Senokot S 8.6-50 MG TAB PO SCH ×2 (08:29→20:09)
[2021-08-25] MEDS: Famotidine 20 MG TAB PO SCH (08:30)
[2021-08-25] MEDS: Sulfameth/Trimethoprim DS 800-160mg TAB PO SCH ×2 (08:30→20:09)
[2021-08-25] MEDS: Saccharomyces boulardii 250 MG CAP PO SCH (08:30)
[2021-08-25] MEDS: Polyethylene Glycol 3350 17 GM Packet PO SCH (08:30)
[2021-08-25] MEDS: Clopidogrel Bisulfate 75 MG TAB PO SCH (08:30)
[2021-08-25] MEDS: Mometasone 200 MCG/Formoterol 5 MCG 120 PUFF INHALER INH SCH ×2 (10:42→20:32)
[2021-08-25 12:19] VITALS: BMI 50.0
[2021-08-26] MEDS: Acetaminophen 325 MG TAB PO SCH ×4 (05:03→21:39)
[2021-08-26 05:37] LABS: #Basophils 0.1 thou/uL (0.0-0.2); #Eosinphils 0.1 thou/uL (0.0-0.7); #Lymphocytes 3.5 thou/uL (1.20-3.40); #Monocytes 0.9 thou/uL (0.11-0.59); #Neutrophils 9.5 thou/uL (1.40-6.50); %Basophils 0.5 % (0.0-1.0); %Lymphocytes 24.4 % (21.0-51.0); %Monocytes 6.6 % (0.0-10.0); %Neutrophils 67.5 % (42.0-75.0); Hemoglobin 14.3 g/dL (12.0-16.0); Mean Corpuscular HGB CONC 31.1 g/dL (32.0-36.0); Mean Corpuscular Hemoglobin 30.9 pg (27.0-31.0); Mean Corpuscular Volume 99.4 fL (78.0-98.0); Mean Platelet Volume 7.1 fL (7.4-10.4); Platelet Count 216 thou/uL (130-400); RBC Distribution Width 14.1 % (11.5-14.5); Red Blood Cell (RBC) Count 4.62 mill/uL (4.20-5.40); White Blood Cell (WBC) Count 14.1 thou/uL (4.8-10.8)
[2021-08-26 05:48] LABS: Anion Gap 12 mmol/L (10-20); BUN (Urea Nitrogen) 38 mg/dL (9.8-20.1); Calc. Creatinine Clearance 78 mL/min (70-130); Calcium 8.6 mg/dL (7.8-10.44); Carbon Dioxide 26 mmol/L (23-31); Chloride 109 mmol/L (98-107); Glucose 151 mg/dL (83-110); Magnesium 2.3 mg/dL (1.6-2.6); Phosphorus 2.9 mg/dL (2.3-4.7); Sodium 142 mmol/L (136-145)
[2021-08-26] MEDS: Mometasone 200 MCG/Formoterol 5 MCG 120 PUFF INHALER INH SCH ×2 (08:24→19:38)
[2021-08-26] MEDS: Saccharomyces boulardii 250 MG CAP PO SCH (09:06)
[2021-08-26] MEDS: Citalopram 20 MG TAB PO SCH (09:06)
[2021-08-26] MEDS: Icosapent Ethyl 1 GM CAPSULE PO SCH ×2 (09:06→16:53)
[2021-08-26] MEDS: Senokot S 8.6-50 MG TAB PO SCH ×2 (09:06→21:41)
[2021-08-26] MEDS: Empagliflozin 25 MG TAB PO SCH (09:06)
[2021-08-26] MEDS: Polyethylene Glycol 3350 17 GM Packet PO SCH (09:07)
[2021-08-26] MEDS: Amoxicillin/Potassium Clav 875 MG TAB PO SCH ×2 (09:07→21:41)
[2021-08-26] MEDS: Sulfameth/Trimethoprim DS 800-160mg TAB PO SCH ×2 (09:07→21:39)
[2021-08-26] MEDS: Clopidogrel Bisulfate 75 MG TAB PO SCH (09:07)
[2021-08-26] MEDS: Famotidine 20 MG TAB PO SCH (09:07)
[2021-08-26] MEDS: Fenofibrate Nanocrystallized 145 MG TAB PO SCH (09:08)
[2021-08-26] MEDS: Insulin Regular 300 UNITS/3 ML VIAL SC PRN (16:54)
[2021-08-26] MEDS: Atorvastatin Calcium 40 MG TAB PO SCH (21:41)
[2021-08-27] MEDS: Acetaminophen 325 MG TAB PO SCH ×4 (02:52→21:49)
[2021-08-27 06:08] LABS: #Eosinphils 0.2 thou/uL (0.0-0.7); #Lymphocytes 2.1 thou/uL (1.20-3.40); #Monocytes 0.7 thou/uL (0.11-0.59); #Neutrophils 6.6 thou/uL (1.40-6.50); %Basophils 0.2 % (0.0-1.0); %Eosinophils 1.8 % (0.0-10.0); %Lymphocytes 22.1 % (21.0-51.0); %Monocytes 7.5 % (0.0-10.0); %Neutrophils 68.4 % (42.0-75.0); Hemoglobin 12.7 g/dL (12.0-16.0); Mean Corpuscular Hemoglobin 30.8 pg (27.0-31.0); Mean Corpuscular Volume 99.4 fL (78.0-98.0); Mean Platelet Volume 6.9 fL (7.4-10.4); Platelet Count 207 thou/uL (130-400); RBC Distribution Width 13.9 % (11.5-14.5); Red Blood Cell (RBC) Count 4.11 mill/uL (4.20-5.40); White Blood Cell (WBC) Count 9.6 thou/uL (4.8-10.8)
[2021-08-27 06:34] LABS: Anion Gap 11 mmol/L (10-20); BUN (Urea Nitrogen) 35 mg/dL (9.8-20.1); Calc. Creatinine Clearance 95 mL/min (70-130); Calcium 8.8 mg/dL (7.8-10.44); Carbon Dioxide 30 mmol/L (23-31); Chloride 108 mmol/L (98-107); Glucose 165 mg/dL (83-110); Magnesium 2.3 mg/dL (1.6-2.6); Phosphorus 2.3 mg/dL (2.3-4.7); Potassium 4.8 mmol/L (3.5-5.1); Sodium 144 mmol/L (136-145)
[2021-08-27] MEDS: Mometasone 200 MCG/Formoterol 5 MCG 120 PUFF INHALER INH SCH ×2 (07:32→23:11)
[2021-08-27] MEDS ORDERED: PHOS-NAK 1 PKT PACK PO SCH (08:30)
[2021-08-27] MEDS: Saccharomyces boulardii 250 MG CAP PO SCH (08:44)
[2021-08-27] MEDS: Amoxicillin/Potassium Clav 875 MG TAB PO SCH ×2 (08:44→21:49)
[2021-08-27] MEDS: Fenofibrate Nanocrystallized 145 MG TAB PO SCH (08:44)
[2021-08-27] MEDS: Icosapent Ethyl 1 GM CAPSULE PO SCH ×2 (08:44→17:43)
[2021-08-27] MEDS: Clopidogrel Bisulfate 75 MG TAB PO SCH (08:45)
[2021-08-27] MEDS: Citalopram 20 MG TAB PO SCH (08:45)
[2021-08-27] MEDS: Empagliflozin 25 MG TAB PO SCH (08:45)
[2021-08-27] MEDS: Sulfameth/Trimethoprim DS 800-160mg TAB PO SCH ×2 (08:45→21:50)
[2021-08-27] MEDS: Famotidine 20 MG TAB PO SCH (08:48)
[2021-08-27] MEDS: Lisinopril 20 MG TAB PO SCH (08:54)
[2021-08-27] MEDS: Senokot S 8.6-50 MG TAB PO SCH ×2 (09:17→22:04)
[2021-08-27] MEDS: Polyethylene Glycol 3350 17 GM Packet PO SCH (09:17)
[2021-08-27] MEDS ORDERED: Bisacodyl 10 MG SUPP PR PRN (10:52)
[2021-08-27] MEDS: Insulin Regular 300 UNITS/3 ML VIAL SC PRN ×2 (12:17→16:23)
[2021-08-27] MEDS: Atorvastatin Calcium 40 MG TAB PO SCH (21:49)
[2021-08-27] MEDS: Melatonin 3 MG TAB PO SCH (21:49)
[2021-08-28] MEDS: Acetaminophen 325 MG TAB PO SCH ×4 (03:47→21:38)
[2021-08-28 06:16] LABS: #Basophils 0.1 thou/uL (0.0-0.2); #Eosinphils 0.3 thou/uL (0.0-0.7); #Lymphocytes 2.4 thou/uL (1.20-3.40); #Monocytes 0.6 thou/uL (0.11-0.59); #Neutrophils 5.4 thou/uL (1.40-6.50); %Basophils 1.2 % (0.0-1.0); %Eosinophils 3.6 % (0.0-10.0); %Lymphocytes 27.1 % (21.0-51.0); %Monocytes 6.6 % (0.0-10.0); %Neutrophils 61.6 % (42.0-75.0); Hemoglobin 13.6 g/dL (12.0-16.0); Mean Corpuscular Volume 99.9 fL (78.0-98.0); Platelet Count 219 thou/uL (130-400); Red Blood Cell (RBC) Count 4.38 mill/uL (4.20-5.40); White Blood Cell (WBC) Count 8.7 thou/uL (4.8-10.8)
[2021-08-28 06:39] LABS: Anion Gap 14 mmol/L (10-20); BUN (Urea Nitrogen) 31 mg/dL (9.8-20.1); Calc. Creatinine Clearance 92 mL/min (70-130); Calcium 8.8 mg/dL (7.8-10.44); Carbon Dioxide 30 mmol/L (23-31); Chloride 104 mmol/L (98-107); Glucose 149 mg/dL (83-110); Magnesium 2.4 mg/dL (1.6-2.6); Phosphorus 3.5 mg/dL (2.3-4.7); Potassium 5.2 mmol/L (3.5-5.1); Sodium 143 mmol/L (136-145)
[2021-08-28] MEDS: Mometasone 200 MCG/Formoterol 5 MCG 120 PUFF INHALER INH SCH ×2 (07:08→19:51)
[2021-08-28] MEDS: Citalopram 20 MG TAB PO SCH (10:06)
[2021-08-28] MEDS: Lisinopril 20 MG TAB PO SCH (10:06)
[2021-08-28] MEDS: Empagliflozin 25 MG TAB PO SCH (10:06)
[2021-08-28] MEDS: Clopidogrel Bisulfate 75 MG TAB PO SCH (10:06)
[2021-08-28] MEDS: Famotidine 20 MG TAB PO SCH (10:06)
[2021-08-28] MEDS: Furosemide 40 MG TAB PO SCH (10:08)
[2021-08-28] MEDS: Saccharomyces boulardii 250 MG CAP PO SCH (10:08)
[2021-08-28] MEDS: Amoxicillin/Potassium Clav 875 MG TAB PO SCH ×2 (10:08→21:38)
[2021-08-28] MEDS: Fenofibrate Nanocrystallized 145 MG TAB PO SCH (10:08)
[2021-08-28] MEDS: Icosapent Ethyl 1 GM CAPSULE PO SCH ×2 (10:08→15:26)
[2021-08-28] MEDS: Polyethylene Glycol 3350 17 GM Packet PO SCH (10:09)
[2021-08-28] MEDS: Senokot S 8.6-50 MG TAB PO SCH ×2 (10:09→21:37)
[2021-08-28] MEDS ORDERED: guaiFENesin ER 600 MG TAB PO PRN (15:37)
[2021-08-28] MEDS: Insulin Regular 300 UNITS/3 ML VIAL SC PRN ×2 (18:23→21:41)
[2021-08-28] MEDS: Melatonin 3 MG TAB PO SCH (21:37)
[2021-08-28] MEDS: Atorvastatin Calcium 40 MG TAB PO SCH (21:38)
[2021-08-29] MEDS: Acetaminophen 325 MG TAB PO SCH ×2 (04:06→09:48)
[2021-08-29 06:18] LABS: Anion Gap 15 mmol/L (10-20); BUN (Urea Nitrogen) 30 mg/dL (9.8-20.1); Calc. Creatinine Clearance 110 mL/min (70-130); Calcium 9.1 mg/dL (7.8-10.44); Carbon Dioxide 29 mmol/L (23-31); Chloride 102 mmol/L (98-107); Glucose 154 mg/dL (83-110); Magnesium 2.1 mg/dL (1.6-2.6); Potassium 4.9 mmol/L (3.5-5.1); Sodium 141 mmol/L (136-145)
[2021-08-29] MEDS ORDERED: PHOS-NAK 1 PKT PACK PO SCH (08:00)
[2021-08-29] MEDS: Mometasone 200 MCG/Formoterol 5 MCG 120 PUFF INHALER INH SCH (09:01)
[2021-08-29] MEDS: Icosapent Ethyl 1 GM CAPSULE PO SCH (09:44)
[2021-08-29] MEDS: Empagliflozin 25 MG TAB PO SCH (09:44)
[2021-08-29] MEDS: Polyethylene Glycol 3350 17 GM Packet PO SCH (09:44)
[2021-08-29] MEDS: Fenofibrate Nanocrystallized 145 MG TAB PO SCH (09:44)
[2021-08-29] MEDS: Senokot S 8.6-50 MG TAB PO SCH (09:44)
[2021-08-29] MEDS: Amoxicillin/Potassium Clav 875 MG TAB PO SCH (09:44)
[2021-08-29] MEDS: Furosemide 40 MG TAB PO SCH (09:45)
[2021-08-29] MEDS: Famotidine 20 MG TAB PO SCH (09:45)
[2021-08-29] MEDS ORDERED: Famotidine 20 MG TAB PO SCH ×2 (09:45→21:00)
[2021-08-29] MEDS: Citalopram 20 MG TAB PO SCH (09:45)
[2021-08-29] MEDS: Clopidogrel Bisulfate 75 MG TAB PO SCH (09:45)
[2021-08-29] MEDS: Lisinopril 20 MG TAB PO SCH (09:45)
[2021-08-29] MEDS: Saccharomyces boulardii 250 MG CAP PO SCH (09:45)
[2021-08-29] MEDS ORDERED: Acetaminophen 325 MG TAB PO PRN (10:30)
[2021-08-29 11:37] VITALS: BP 129/65; TEMP 98.5
[2021-08-29 12:21] LABS: SARS-CoV-2 NAA Rapid Test Not Detected (NotDetected)
== END 2021-08-29 14:55 | DRG 85 ==
LOC: ERS 16:57 → SJJU 20:25
PROVIDERS: ADMIT Surgery; ATTEND Surgery
DX: S02.832A Fracture of medial orbital wall, left side, initial encounter for closed fracture (principal); G93.41 Metabolic encephalopathy; S42.201A Unspecified fracture of upper end of right humerus, initial encounter for closed fracture; N17.9 Acute kidney failure, unspecified; Z68.43 Body mass index [BMI] 50.0-59.9, adult; N39.0 Urinary tract infection, site not specified; W19.XXXA Unspecified fall, initial encounter; I25.10 Atherosclerotic heart disease of native coronary artery without angina pectoris; N18.30 Chronic kidney disease, stage 3 unspecified; E11.22 Type 2 diabetes mellitus with diabetic chronic kidney disease; E11.40 Type 2 diabetes mellitus with diabetic neuropathy, unspecified; E78.5 Hyperlipidemia, unspecified; E66.01 Morbid (severe) obesity due to excess calories; I10 Essential (primary) hypertension; E11.649 Type 2 diabetes mellitus with hypoglycemia without coma; S05.12XA Contusion of eyeball and orbital tissues, left eye, initial encounter; Z20.822 Contact with and (suspected) exposure to COVID-19; R33.9 Retention of urine, unspecified; Z90.49 Acquired absence of other specified parts of digestive tract; Y92.002 Bathroom of unspecified non-institutional (private) residence as the place of occurrence of the external cause; Z90.710 Acquired absence of both cervix and uterus; Z95.5 Presence of coronary angioplasty implant and graft; Z87.891 Personal history of nicotine dependence; Z88.0 Allergy status to penicillin
CPT/HCPCS: 36415; 36416; 70450; 70486; 71045; 72125; 80048; 80053; 81001; 82550; 83036; 83735; 83880; 84100; 85025; 87086; 93005; 93010; 93306; 94640; 96374; 96375; 96376; G0390; J1815; J2270; J2405; J7050; J7620; U0002

== ENCOUNTER 2021-09-28 22:59 | Inpatient (IN) | payer MEDICARE, OTHER ==
[2021-09-28] MEDS ORDERED: Furosemide 40 MG/4 ML VIAL ONE (23:54)
[2021-09-29 00:18] LABS: #Basophils 0.1 thou/uL (0.0-0.2); #Eosinphils 0.2 thou/uL (0.0-0.7); #Lymphocytes 2.4 thou/uL (1.20-3.40); #Monocytes 0.5 thou/uL (0.11-0.59); #Neutrophils 5.1 thou/uL (1.40-6.50); %Eosinophils 2.7 % (0.0-10.0); %Lymphocytes 28.6 % (21.0-51.0); %Monocytes 5.8 % (0.0-10.0); %Neutrophils 61.9 % (42.0-75.0); Hemoglobin 12.6 g/dL (12.0-16.0); Mean Corpuscular Volume 99.9 fL (78.0-98.0); Mean Platelet Volume 6.7 fL (7.4-10.4); Platelet Count 244 thou/uL (130-400); RBC Distribution Width 14.2 % (11.5-14.5); Red Blood Cell (RBC) Count 4.06 mill/uL (4.20-5.40); White Blood Cell (WBC) Count 8.3 thou/uL (4.8-10.8)
[2021-09-29 00:22] LABS: ALT (SGPT) 12 U/L (8-55); AST (SGOT) 12 U/L (5-34); Albumin 3.5 g/dL (3.4-4.8); Alkaline Phosphatase 85 U/L (40-110); BUN (Urea Nitrogen) 20 mg/dL (9.8-20.1); Bilirubin, Total 0.6 mg/dL (0.2-1.2); Calc. Creatinine Clearance 0 mL/min (70-130); Calcium 9.2 mg/dL (7.8-10.44); Globulin 2.3 g/dL (2.4-3.5); Glucose 204 mg/dL (83-110); Protein, Total 5.8 g/dL (5.8-8.1)
[2021-09-29 00:33] LABS: Anion Gap 14 mmol/L (10-20); Carbon Dioxide 36 mmol/L (23-31); Chloride 96 mmol/L (98-107); Potassium 3.9 mmol/L (3.5-5.1); Sodium 142 mmol/L (136-145)
[2021-09-29] MEDS ORDERED: HumaLOG 300 UNITS/3 ML VIAL SC PRN ×2 (03:13)
[2021-09-29] MEDS ORDERED: Dextrose 50% Abboject 50 ML SYRINGE SLOW IVP PRN (03:13)
[2021-09-29] MEDS ORDERED: Dextrose 5% in Water 1,000 ML IV PRN (03:13)
[2021-09-29 04:16] VITALS: BMI 43.7
[2021-09-29 04:56] LABS: Anion Gap 15 mmol/L (10-20); BUN (Urea Nitrogen) 18 mg/dL (9.8-20.1); Calc. Creatinine Clearance 99 mL/min (70-130); Calcium 9.2 mg/dL (7.8-10.44); Carbon Dioxide 35 mmol/L (23-31); Chloride 96 mmol/L (98-107); Glucose 178 mg/dL (83-110); Potassium 3.7 mmol/L (3.5-5.1); Sodium 142 mmol/L (136-145)
[2021-09-29] MEDS ORDERED: Bisacodyl 10 MG SUPP PR PRN (05:45)
[2021-09-29] MEDS ORDERED: Acetaminophen 325 MG TAB PO PRN (05:47)
[2021-09-29] MEDS ORDERED: Mometasone/Formoterol 200/5 60 PUFF INH SCH (06:30)
[2021-09-29] MEDS: Mometasone 200 MCG/Formoterol 5 MCG 120 PUFF INHALER INH SCH ×2 (07:21→20:39)
[2021-09-29] MEDS: Icosapent Ethyl 1 GM CAPSULE PO SCH ×2 (08:39→16:51)
[2021-09-29] MEDS: Empagliflozin 25 MG TAB PO SCH (08:40)
[2021-09-29] MEDS: Polyethylene Glycol 3350 17 GM Packet PO SCH (08:40)
[2021-09-29] MEDS: Citalopram 20 MG TAB PO SCH (08:40)
[2021-09-29] MEDS: Fenofibrate Nanocrystallized 145 MG TAB PO SCH (08:40)
[2021-09-29] MEDS: Lisinopril 20 MG TAB PO SCH (08:40)
[2021-09-29] MEDS: Clopidogrel Bisulfate 75 MG TAB PO SCH (08:40)
[2021-09-29] MEDS: Enoxaparin Sodium 40 MG/0.4 ML SYRINGE SC SCH (08:46)
[2021-09-29] MEDS ORDERED: predniSONE 20 MG TAB PO SCH (10:45)
[2021-09-29 12:30] LABS: SARS-CoV-2 PCR by NAA Not Detected (NotDetected)
[2021-09-29] MEDS ORDERED: Atorvastatin Calcium 40 MG TAB PO SCH (21:00)
[2021-09-30 04:28] LABS: BUN (Urea Nitrogen) 24 mg/dL (9.8-20.1); Calc. Creatinine Clearance 103 mL/min (70-130); Glucose 136 mg/dL (83-110)
[2021-09-30 04:37] LABS: Anion Gap 14 mmol/L (10-20); Carbon Dioxide 37 mmol/L (23-31); Chloride 96 mmol/L (98-107); Sodium 143 mmol/L (136-145)
[2021-09-30] MEDS: Mometasone 200 MCG/Formoterol 5 MCG 120 PUFF INHALER INH SCH (06:45)
[2021-09-30] MEDS ORDERED: predniSONE 20 MG TAB PO SCH (08:00)
[2021-09-30] MEDS: Clopidogrel Bisulfate 75 MG TAB PO SCH (08:19)
[2021-09-30] MEDS: Enoxaparin Sodium 40 MG/0.4 ML SYRINGE SC SCH (08:19)
[2021-09-30] MEDS: Empagliflozin 25 MG TAB PO SCH (08:19)
[2021-09-30] MEDS: Icosapent Ethyl 1 GM CAPSULE PO SCH (08:19)
[2021-09-30] MEDS: Lisinopril 20 MG TAB PO SCH (08:19)
[2021-09-30] MEDS: Citalopram 20 MG TAB PO SCH (08:19)
[2021-09-30] MEDS: Fenofibrate Nanocrystallized 145 MG TAB PO SCH (08:19)
[2021-09-30] MEDS: Polyethylene Glycol 3350 17 GM Packet PO SCH (08:20)
[2021-09-30] MEDS ORDERED: Furosemide 40 MG TAB PO SCH (09:00)
[2021-09-30 12:46] VITALS: BP 142/60; TEMP 97.2
== END 2021-09-30 14:20 | DRG 291 ==
LOC: ERS 22:59 → 2NO 09-29 02:31
PROVIDERS: ADMIT Family Medicine; ATTEND Student in an Organized Health Care Education/Training Program
DX: I11.0 Hypertensive heart disease with heart failure (principal); Z66 Do not resuscitate; Z20.822 Contact with and (suspected) exposure to COVID-19; I50.33 Acute on chronic diastolic (congestive) heart failure; J96.01 Acute respiratory failure with hypoxia; S42.291A Other displaced fracture of upper end of right humerus, initial encounter for closed fracture; J44.1 Chronic obstructive pulmonary disease with (acute) exacerbation; E66.2 Morbid (severe) obesity with alveolar hypoventilation; Z68.41 Body mass index [BMI] 40.0-44.9, adult; I27.20 Pulmonary hypertension, unspecified; E11.40 Type 2 diabetes mellitus with diabetic neuropathy, unspecified; E78.5 Hyperlipidemia, unspecified; H91.90 Unspecified hearing loss, unspecified ear; I25.10 Atherosclerotic heart disease of native coronary artery without angina pectoris; I87.2 Venous insufficiency (chronic) (peripheral); Z96.21 Cochlear implant status; W18.30XA Fall on same level, unspecified, initial encounter; Z88.0 Allergy status to penicillin; Z79.899 Other long term (current) drug therapy; Z79.02 Long term (current) use of antithrombotics/antiplatelets; Z79.4 Long term (current) use of insulin; Z79.51 Long term (current) use of inhaled steroids; Z90.49 Acquired absence of other specified parts of digestive tract; Z90.710 Acquired absence of both cervix and uterus; Z95.5 Presence of coronary angioplasty implant and graft; Z87.891 Personal history of nicotine dependence
CPT/HCPCS: 36415; 36416; 71045; 80048; 80053; 83605; 83880; 84145; 84484; 85025; 87040; 93005; J1650; J1940; J7512; U0003; U0005

== ENCOUNTER 2021-10-19 10:41 | Emergency (ER) | payer MEDICARE ==
[2021-10-19] MEDS ORDERED: Dexamethasone 10 MG/ML VIAL ONE (11:35)
[2021-10-19 11:37] LABS: #Lymphocytes 1.6 thou/uL (1.20-3.40); #Monocytes 0.3 thou/uL (0.11-0.59); #Neutrophils 5.8 thou/uL (1.40-6.50); %Basophils 0.2 % (0.0-1.0); %Eosinophils 0.1 % (0.0-10.0); %Lymphocytes 20.6 % (21.0-51.0); %Monocytes 3.6 % (0.0-10.0); %Neutrophils 75.5 % (42.0-75.0); Hemoglobin 13.6 g/dL (12.0-16.0); Mean Corpuscular HGB CONC 30.5 g/dL (32.0-36.0); Mean Corpuscular Hemoglobin 31.4 pg (27.0-31.0); Platelet Count 220 thou/uL (130-400); RBC Distribution Width 13.4 % (11.5-14.5); Red Blood Cell (RBC) Count 4.34 mill/uL (4.20-5.40); White Blood Cell (WBC) Count 7.6 thou/uL (4.8-10.8)
[2021-10-19] MEDS ORDERED: Magnesium 2 GM/50 ML BAG (IN WATER) ONE (11:37)
[2021-10-19 12:05] LABS: ALT (SGPT) 17 U/L (8-55); AST (SGOT) 22 U/L (5-34); Albumin 3.2 g/dL (3.4-4.8); Alkaline Phosphatase 59 U/L (40-110); Anion Gap 17 mmol/L (10-20); BUN (Urea Nitrogen) 32 mg/dL (9.8-20.1); Bilirubin, Total 0.5 mg/dL (0.2-1.2); CK (CPK) 26 U/L (29-168); Calc. Creatinine Clearance 0 mL/min (70-130); Calcium 8.9 mg/dL (7.8-10.44); Carbon Dioxide 35 mmol/L (23-31); Globulin 3.1 g/dL (2.4-3.5); Glucose 206 mg/dL (83-110); Lipase 91 U/L (8-78); Potassium 4.3 mmol/L (3.5-5.1); Protein, Total 6.3 g/dL (5.8-8.1); Sodium 145 mmol/L (136-145)
[2021-10-19] MEDS ORDERED: Albuterol Sulfate 2.5 mg/3 ml Neb ONE ×2 (12:08)
[2021-10-19 12:35] LABS: Chloride 97 mmol/L (98-107)
[2021-10-19] MEDS ORDERED: Lorazepam 2 MG/ML VIAL ONE (13:25)
[2021-10-19] MEDS ORDERED: Dextrose 50% Abboject 50 ML SYRINGE SLOW IVP PRN (13:46)
[2021-10-19] MEDS ORDERED: Ondansetron PF 4 MG/2 ML Vial IVP PRN (13:46)
[2021-10-19] MEDS ORDERED: Acetaminophen 325 MG TAB PO PRN (13:46)
[2021-10-19] MEDS ORDERED: Dextrose 5% in Water 1,000 ML IV PRN (13:46)
[2021-10-19] MEDS ORDERED: Acetaminophen 650 MG Suppository PR PRN (13:46)
[2021-10-19] MEDS ORDERED: Albuterol Sulfate 2.5 mg/3 ml Neb NEB PRN (13:48)
[2021-10-19] MEDS ORDERED: HumaLOG 300 UNITS/3 ML VIAL SC PRN ×2 (13:48)
[2021-10-19] MEDS ORDERED: Furosemide 40 MG/4 ML VIAL ONE (14:00)
[2021-10-19] MEDS ORDERED: Furosemide 20 MG/2 ML VIAL ONE (14:00)
[2021-10-19 14:01] LABS: Bilirubin Negative (Negative); Blood, Urine 1+ (Negative); Clarity Extra Turbid (Clear); Glucose, Urine (Dipstick) Greater than 1000 mg/dL (Negative); Ketone, Urine Negative (Negative); Leukocyte 500 Leu/uL (Negative); Nitrite Negative (Negative); Protein, Urine (Dipstick) 10 mg/dL (Neg-Trace); Specific Gravity, Urine 1.015 (1.002-1.036); Urobilinogen Normal mg/dL (Less than 2)
[2021-10-19 14:04] LABS: Bacteria/HPF 4+ HPF (None Seen); Squamous Epithelial None Seen HPF (0-3); WBC/HPF Greater than 50 HPF (0-3)
[2021-10-19] MEDS ORDERED: Ipratropium Bromide 2.5 ml Neb NEB SCH (14:30)
[2021-10-19 14:46] LABS: Troponin I 0.025 ng/mL (< 0.028)
[2021-10-19] MEDS ORDERED: Morphine 2 MG/ML VIAL SLOW IVP PRN (15:10)
[2021-10-20] MEDS ORDERED: methylPREDNISolone Sod Succ 40 MG VIAL IVP SCH (09:00)
[2021-10-20] MEDS ORDERED: Enoxaparin Sodium 40 MG/0.4 ML SYRINGE SC SCH (09:00)
== END 2021-10-19 17:20 | disposition hospice, inpatient (51) ==
LOC: ERS 10:41
DX: J80 Acute respiratory distress syndrome (principal); J44.9 Chronic obstructive pulmonary disease, unspecified; L89.159 Pressure ulcer of sacral region, unspecified stage; I49.3 Ventricular premature depolarization; I10 Essential (primary) hypertension; I25.10 Atherosclerotic heart disease of native coronary artery without angina pectoris; E78.2 Mixed hyperlipidemia; E11.40 Type 2 diabetes mellitus with diabetic neuropathy, unspecified; E66.9 Obesity, unspecified; Z68.45 Body mass index [BMI] 70 or greater, adult; Z79.899 Other long term (current) drug therapy
CPT/HCPCS: 51701; 71045; 80053; 81003; 81015; 82550; 83605; 83690; 83880; 84145; 84484; 85025; 87040; 87086; 87186; 93005; 94640; 94644; 94660; 96365; 96366; 96367; 96375; J1100; J1940; J1956; J2060; J3475; J7611; J7620